=== PATIENT | male | born 1960 | race Caucasian/White ===

== ENCOUNTER → 2017-12-31 | Outpatient (CLI) | payer MEDICAID ==
[2017-12-31 08:14] LABS: Basophils % (A) 1 %; Eosinophils # (A) 0.2 k/uL (0-0.7); Eosinophils % (A) 2 %; HCT 48.7 % (39.0-53.0); Lymphocytes # (A) 2.1 k/uL (1.0-4.8); Lymphocytes % (A) 30 %; MCH 29.6 pg (25.0-35.0); MCHC 32.9 g/dL (31.0-37.0); MCV 89.9 fL (80.0-100.0); Mean Platelet Volume 7.1; Monocytes # (A) 0.4 k/uL (0-1.0); Monocytes % (A) 5 %; Neutrophils # (A) 4.2 k/uL (1.3-7.7); Neutrophils % (A) 60 %; Platelet Count 208 k/uL (150-450); RBC 5.42 m/uL (4.30-5.90); RDW 12.9 % (11.5-15.5)
[2017-12-31 09:42] LABS: Albumin 4.2 g/dL (3.5-5.0); Calcium 9.9 mg/dL (8.4-10.2); Potassium 4.6 mmol/L (3.5-5.1); Total Protein 7.2 g/dL (6.3-8.2)
[2017-12-31 10:12] LABS: Prostate Specific Antigen 1.46 ng/mL (0.00-4.00)
== END | disposition home or self-care (01) ==
LOC: LABWHC1 07:40
PROVIDERS: ATTEND Family Medicine
DX: Z00.00 Encounter for general adult medical examination without abnormal findings (principal); M54.31 Sciatica, right side; I10 Essential (primary) hypertension
CPT/HCPCS: 36415; 80053; 80061; 84153; 84443; 85025; 86803

== ENCOUNTER 2019-01-12 09:02 | Day surgery (SDC) | payer MEDICAID ==
[2019-01-08 08:56] VITALS: BMI 28.8
[~2019-01-12 09:02] MED LIST: LACTATED RINGERS 1,000 ML IV SCH
[2019-01-12 09:52] VITALS: TEMP 97
[2019-01-12] MEDS ORDERED: LIDOCAINE 1% INJ 10MG/ML (20 ML MDV) ONE (10:16)
[2019-01-12] MEDS ORDERED: PROPOFOL 10 MG/ML 20 ML VIAL IV ONE ×2 (10:16)
--- NOTE | 2019-01-12 10:49 | P.PCN ---
Date of Procedure: 01/12/19 Procedure(s) Performed: Procedure: Total colonoscopy. Preoperative diagnosis: Screening for neoplasia, patient has family history of colon cancer in his mother. Postoperative diagnosis: Sigmoid diverticulosis with no evidence of acute diverticulitis, strictures, polyps or cancer. Preparation: HalfLytely prep. Sedation: Was provided by anesthesia. Brief clinical history: The patient is a 58-year-old male who is scheduled for this evaluation for screening for neoplasia because of family history of colon cancer in his mother. His last exam was in September 2013. The patient has no abdominal complaints, bleeding or anemia. Procedure: With the patient on his left lateral decubitus position and after informed consent and adequate sedation, the perianal area was inspected and it did not show any fissures or fistulas. There were no masses felt on digital rectal examination. The Olympus CFH 190L video colonoscope was then inserted in the rectum in the usual fashion and advanced to the cecum. There were several diverticular orifices seen scattered in the sigmoid with no evidence of acute diverticulitis or strictures. No polyps or tumors were seen. I retroflexed the endoscope in the rectum before the endoscope was withdrawn. The patient tolerated the procedure well. Plan: The patient was reassured. Discussed dietary measures. He will follow up with you as planned and I recommended repeat exam in 5 years.
[2019-01-12 10:50] VITALS: RESP 14
[2019-01-12 11:01] VITALS: BP 121/71; PULSE 67
== END 2019-01-12 11:38 | disposition home or self-care (01) ==
LOC: ORWHC2ENDO 09:02
DX: Z12.11 Encounter for screening for malignant neoplasm of colon (principal); Z80.0 Family history of malignant neoplasm of digestive organs; K57.30 Diverticulosis of large intestine without perforation or abscess without bleeding; I10 Essential (primary) hypertension; K21.9 Gastro-esophageal reflux disease without esophagitis; Z79.82 Long term (current) use of aspirin; Z79.899 Other long term (current) drug therapy
CPT/HCPCS: J2001; J2704; G0105

== ENCOUNTER → 2019-08-13 | Outpatient (CLI) | payer MEDICAID | LOC: LABWHC1 12:20 | PROVIDERS: ATTEND Family Medicine | DX: M62.838 Other muscle spasm (principal) | CPT/HCPCS: 36415; 82550 ==

== ENCOUNTER → 2019-10-30 | Outpatient (CLI) | payer MEDICAID ==
[2019-10-30 09:16] LABS: Basophils % (A) 1 %; Eosinophils # (A) 0.1 k/uL (0-0.7); Eosinophils % (A) 2 %; HCT 49.9 % (39.0-53.0); HGB 16.2 gm/dL (13.0-17.5); Lymphocytes # (A) 1.6 k/uL (1.0-4.8); Lymphocytes % (A) 20 %; MCH 30.4 pg (25.0-35.0); MCHC 32.4 g/dL (31.0-37.0); MCV 93.7 fL (80.0-100.0); Mean Platelet Volume 8.1; Monocytes # (A) 0.4 k/uL (0-1.0); Monocytes % (A) 5 %; Neutrophils # (A) 5.8 k/uL (1.3-7.7); Neutrophils % (A) 71 %; Platelet Count 194 k/uL (150-450); RBC 5.33 m/uL (4.30-5.90); RDW 12.6 % (11.5-15.5); WBC 8.1 k/uL (3.8-10.6)
[2019-10-30 17:27] LABS: African American GFR (CKD) 76.3 (60.0-200.0); Anion Gap 7.8 mmol/L (4.00-12.00); BUN/Creat Ratio 14.17 Ratio (12.00-20.00); Calcium 9.8 mg/dL (8.7-10.3); Carbon Dioxide 29.2 mmol/L (21.6-31.8); Chol/HDL Ratio 3.2; LDL Cholesterol,Calculated 100.4 mg/dL (0.0-131.0); Non-African American GFR(CKD) 65.8 (60.0-200.0); Potassium 4.9 mmol/L (3.5-5.5); VLDL Calculation 22.6 mg/dL (5.00-40.00)
== END | disposition home or self-care (01) ==
LOC: LABWHC1 08:23
PROVIDERS: ATTEND Family Medicine
DX: I10 Essential (primary) hypertension (principal); M54.5 Low back pain; F41.1 Generalized anxiety disorder
CPT/HCPCS: 36415; 80048; 80061; 82550; 84153; 84450; 84460; 85025

== ENCOUNTER → 2019-11-06 | Outpatient (CLI) | payer MEDICAID ==
[2019-11-06 12:59] LABS: Ionized Calcium 5.1 mg/dL (4.5-5.3)
[2019-11-06 19:34] LABS: African American GFR (CKD) 76.3 (60.0-200.0); BUN/Creat Ratio 13.33 Ratio (12.00-20.00); C Reactive Protein <0.4 mg/dL (0.0-0.8); Calcium 9.6 mg/dL (8.7-10.3); Carbon Dioxide 25.7 mmol/L (21.6-31.8); Chloride 102 mmol/L (96-109); Creatine Kinase 93 U/L (35-257); Glucose 172 mg/dL (70-110); Magnesium 2.4 mg/dL (1.5-2.4); Non-African American GFR(CKD) 65.8 (60.0-200.0); Sodium 137 mmol/L (135-145)
[2019-11-06 19:50] LABS: Anti-DNA, DS unit <1.0 IU/mL; DNA Double-Stranded NEGATIVE (NEGATIVE)
== END | disposition home or self-care (01) ==
LOC: LABWHC1 11:35
PROVIDERS: ATTEND Psychiatry & Neurology Neurology
DX: M60.9 Myositis, unspecified (principal); R25.2 Cramp and spasm; R25.3 Fasciculation
CPT/HCPCS: 36415; 80048; 82330; 82550; 82607; 82747; 83735; 84439; 84443; 85652; 86038; 86140; 86225

== ENCOUNTER → 2021-02-03 | Outpatient (CLI) | payer MEDICAID | END | disposition home or self-care (01) | LOC: LABPAT 08:12 | PROVIDERS: ATTEND Student in an Organized Health Care Education/Training Program | DX: Z20.822 Contact with and (suspected) exposure to COVID-19 (principal) | CPT/HCPCS: U0003; C9803; U0005 ==

== ENCOUNTER 2021-02-10 08:05 | Day surgery (SDC) | payer MEDICAID ==
[2021-02-08 10:28] VITALS: BMI 27.8
[~2021-02-10 08:05] MED LIST changes: -LACTATED RINGERS 1,000 ML IV SCH; +LIDOCAINE 1% (10MG/ML) FOR IV START INTRADERMA PRN
[2021-02-10] MEDS: LACTATED RINGERS 1,000 ML IV SCH ×2 (08:18→08:36)
[2021-02-10 08:38] VITALS: RESP 16; TEMP 97.2
[2021-02-10 08:39] LABS: Glucose,Whole Blood 105 mg/dL (75-99)
[2021-02-10] MEDS ORDERED: PROPOFOL 10 MG/ML 20 ML VIAL IV ONE (08:45)
--- NOTE | 2021-02-10 09:02 | P.OP ---
Date of Procedure: 02/10/21 Preoperative Diagnosis: Screening colonoscopy Postoperative Diagnosis: Diverticulosis Anesthesia: GETA Surgeon: Wili Smith Estimated Blood Loss (ml): 0 Condition: stable Disposition: same day Description of Procedure: Patient brought operative suite remained in the left lateral decubitus position underwent sedation per department of anesthesia timeout performed correct patient correct procedure correct site was verified rectal exam was performed no gross abnormalities noted scope was placed from the rectum to the cecum with the slowly withdrawn being sure to visualize all shrestha of the colon on the way out no gross abnormalities are noted other than sigmoid diverticuli. Scope was retroflexed in the rectum no gross abnormalities are noted scope was removed patient tolerated procedure well no apparent complications repeat colonoscopy in 10 years
[2021-02-10 09:16] VITALS: BP 113/74; PULSE 72
== END 2021-02-10 10:10 | disposition home or self-care (01) ==
LOC: ORWHC2ENDO 08:05
PROVIDERS: ATTEND Student in an Organized Health Care Education/Training Program
DX: Z12.11 Encounter for screening for malignant neoplasm of colon (principal); K57.30 Diverticulosis of large intestine without perforation or abscess without bleeding; I10 Essential (primary) hypertension; E11.9 Type 2 diabetes mellitus without complications; M19.90 Unspecified osteoarthritis, unspecified site; F32.9 Major depressive disorder, single episode, unspecified; F41.9 Anxiety disorder, unspecified; Z79.82 Long term (current) use of aspirin; Z79.899 Other long term (current) drug therapy; Z85.038 Personal history of other malignant neoplasm of large intestine; Z82.49 Family history of ischemic heart disease and other diseases of the circulatory system; Z84.89 Family history of other specified conditions
CPT/HCPCS: J2704; G0121

== ENCOUNTER → 2021-03-09 | Outpatient (CLI) | payer MEDICAID ==
--- NOTE | 2021-03-09 11:08 | MR ---
EXAMINATION TYPE: MR lumbar spine wo con DATE OF EXAM: 03/09/2021 COMPARISON: NONE HISTORY: Low back pain that travels down right leg for years. TECHNIQUE: T1 and T2 axial and sagittal images of the lumbar spine are submitted. FINDINGS: There is no abnormal signal seen within the visualized spinal cord or paraspinal soft tissu es. At T12-L1 there is some broad-based disc bulging but no canal stenosis or focal herniation. No forami nal encroachment. Degenerative disc disease. At L1-2 there is degenerative disc disease with disc bulging but no canal stenosis or focal herniatio n. Neural foramina patent. At L2-3 there is moderate degenerative disc disease with broad-based disc protrusion, facet arthropat hy and ligamentum flavum hypertrophy result in moderate to severe canal stenosis and bilateral forami nal encroachment. At L3-4 there is moderate degenerative disc disease. There is focal moderate sized central disc herni ation with significant effacement of thecal sac, canal stenosis. There is facet arthropathy and ligam entum flavum hypertrophy and moderate bilateral foraminal encroachment. At L4-5 there is severe degenerative disc disease with discogenic marrow changes and broad-based cent ral disc herniation, facet arthropathy and ligamentum flavum hypertrophy. Severe canal stenosis and b ilateral foraminal encroachment. At L5-S1 there is degenerative disc disease and facet arthropathy with no evidence of focal herniatio n. Neural foramina patent. No Canal stenosis. IMPRESSION: 1. Multilevel degenerative disc disease and facet arthropathy with multilevel hypertrophic changes of the ligamentum flavum resulting in multilevel canal stenosis as discussed above most marked at L4-5. 2. Multilevel disc herniations as discussed above.
== END | disposition home or self-care (01) ==
LOC: RADMRIMAIN 09:37
PROVIDERS: ATTEND Orthopaedic Surgery Orthopaedic Surgery of the Spine
DX: M51.16 Intervertebral disc disorders with radiculopathy, lumbar region (principal); M47.26 Other spondylosis with radiculopathy, lumbar region; M48.061 Spinal stenosis, lumbar region without neurogenic claudication; M99.73 Connective tissue and disc stenosis of intervertebral foramina of lumbar region
CPT/HCPCS: 72148

== ENCOUNTER 2021-06-12 07:59 | Emergency (ER) | payer MEDICAID ==
[2021-06-12 08:06] VITALS: TEMP 97.6
[2021-06-12] MEDS ORDERED: KETOROLAC 15 MG/ML 1 ML VIAL IVP STA (08:30)
[2021-06-12] MEDS ORDERED: HYDROmorphone 0.5 MG/0.5 ML SYRINGE IVP STA (08:31)
[2021-06-12] MEDS ORDERED: DEXAMETHASONE SOD PHOSPHATE 10 MG/ML 1 ML VIAL IV STA (08:31)
[2021-06-12] MEDS ORDERED: ONDANSETRON 4 MG/2 ML VIAL IVP STA (08:31)
--- NOTE | 2021-06-12 09:39 | ED ---
Extremity Problem HPI - General Chief complaint: Extremity Problem,Nontraumatic Stated complaint: sciatic pain Time Seen by Provider: 06/12/21 08:10 Source: patient, RN notes reviewed Mode of arrival: wheelchair Limitations: physical limitation - History of Present Illness Initial comments: 60-year-old male presents emergency apartment with chief complaint of left hip pain, back pain. Patient's been having issues with his right hip and which he is scheduled for cortisone injection. Patient states he sees Dr. Lucero. Patient has had an MRI. 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 Patient states that around secondary to the pain. He denies any bowel, bladder incontinence or retention or saddle last seizures. - Related Data Home Medications Medication Instructions Recorded Confirmed Bisoprol/Hydrochlorothiazide [Ziac 1 tab PO DAILY 11/29/14 06/12/21 5-6.25 MG] Omeprazole [PriLOSEC] 20 mg PO DAILY 11/29/14 06/12/21 Aspirin [Adult Low Dose Aspirin EC] 81 mg PO DAILY 01/08/19 06/12/21 lisinopriL [Zestril] 5 mg PO HS 11/26/19 06/12/21 buPROPion HCL [Wellbutrin SR] 150 mg PO BID 02/08/21 06/12/21 Previous Rx's Medication Instructions Recorded HYDROcodone/APAP 7.5-325MG [[place] 1 tab PO Q6HR PRN 3 Days #12 tab 06/12/21 7.5-325] predniSONE 50 mg PO DAILY #5 tab 06/12/21 Allergies Allergy/AdvReac Type Severity Reaction Status Date / Time No Known Allergies Allergy Verified 06/12/21 08:41 Review of Systems ROS Statement: Those systems with pertinent positive or pertinent negative responses have been documented in the HPI. ROS Other: All systems not noted in ROS Statement are negative. Past Medical History Past Medical History: Diabetes Mellitus, GERD/Reflux, Hypertension History of Any Multi-Drug Resistant Organisms: None Reported Past Surgical History: Orthopedic Surgery Additional Past Surgical History / Comment(s): eye surgery, shoulder surgery, colonoscopy Past Anesthesia/Blood Transfusion Reactions: No Reported Reaction Past Psychological History: Anxiety, Depression Smoking Status: Never smoker Past Alcohol Use History: Occasional Past Drug Use History: None Reported - Past Family History Mother Family Medical History: Cancer Additional Family Medical History / Comment(s): colon General Exam Limitations: physical limitation General appearance: alert, in no apparent distress Head exam: Present: atraumatic, normocephalic, normal inspection Neck exam: Present: normal inspection, full ROM. Absent: tenderness, meningismus, lymphadenopathy Respiratory exam: Present: normal lung sounds bilaterally. Absent: respiratory distress, wheezes, rales, rhonchi, stridor Cardiovascular Exam: Present: regular rate, normal rhythm, normal heart sounds. Absent: systolic murmur, diastolic murmur, rubs, gallop, clicks GI/Abdominal exam: Present: soft, normal bowel sounds. Absent: distended, tenderness, guarding, rebound, rigid Back exam: Present: tenderness, paraspinal tenderness, other (Lower extremity strength equal bilaterally neurovascular intact). Absent: full ROM, vertebral tenderness Neurological exam: Present: alert, oriented X3, CN II-XII intact, reflexes normal. Absent: motor sensory deficit Course Vital Signs 06/12/21 08:00 Temperature 97.6 F Pulse Rate 64 Respiratory 18 Rate Blood Pressure 167/97 O2 Sat by Pulse 99 Oximetry Medical Decision Making - Medical Decision Making I did review patient's pelvis x-ray along with lumbar MRI. Patient has severe degenerative changes disc herniations and bulging. Patient has some lumbar region There was no red flag symptoms. Patient's pain is improved at this time he will follow-up with his orthopedic surgeon return for any worsening changes symptoms. Disposition Clinical Impression: Lumbar radiculopathy, acute, Lumbar degenerative disc disease, Hip pain Disposition: HOME SELF-CARE Condition: Stable Instructions (If sedation given, give patient instructions): Lumbar Radiculopathy (ED) Additional Instructions: Please return to the Emergency Department if symptoms worsen or any other concerns. Prescriptions: HYDROcodone/APAP 7.5-325MG [[place] 7.5-325] 1 tab PO Q6HR PRN 3 Days #12 tab PRN Reason: pain predniSONE 50 mg PO DAILY #5 tab Is patient prescribed a controlled substance at d/c from ED?: Yes When asked, does pt state using other controlled substances?: No If prescribed controlled substance>3 days was MAPS reviewed?: Prescribed <3 Days If opioid is for acute pain is fill amount 7 days or less?: Yes If Rx opioid, was Start Talking consent form obtained?: Yes Referrals: Ryne Calvert Jr, DO [Primary Care Provider] - 1-2 days Eugene Lucero DO [Doctor of Osteopathic Medicine] - 1-2 days Time of Disposition: 09:39
[2021-06-12 09:45] VITALS: BP 143/92; PULSE 88; RESP 16
== END 2021-06-12 09:40 | disposition home or self-care (01) ==
LOC: EC 07:59
DX: M51.16 Intervertebral disc disorders with radiculopathy, lumbar region (principal); M25.552 Pain in left hip; E11.9 Type 2 diabetes mellitus without complications; K21.9 Gastro-esophageal reflux disease without esophagitis; I10 Essential (primary) hypertension; F41.9 Anxiety disorder, unspecified; F32.9 Major depressive disorder, single episode, unspecified; Z79.82 Long term (current) use of aspirin
CPT/HCPCS: 99283; 96374; 96375 ×3; J1100; J2405; J1885; J1170

== ENCOUNTER 2021-06-20 09:00 | Day surgery (SDC) | payer MEDICAID ==
[~2021-06-20 09:00] MED LIST changes: +LACTATED RINGERS 1,000 ML IV SCH; -LIDOCAINE 1% (10MG/ML) FOR IV START INTRADERMA PRN
[2021-06-20 09:25] VITALS: TEMP 97
[2021-06-20] MEDS ORDERED: TRIAMCINOLONE ACETONIDE 40 MG/ML 1 ML VIAL ONE (09:58)
[2021-06-20] MEDS ORDERED: ROPIVACAINE 5MG/ML 20ML VIAL ONE (09:58)
[2021-06-20 09:59] LABS: Glucose,Whole Blood 122 mg/dL (75-99)
--- NOTE | 2021-06-20 10:14 | P.PCN ---
Date of Procedure: 06/20/21 Surgeon: Maryam Olvera Pathology: none sent Condition: stable Disposition: PACU Description of Procedure: Pre OP diagnoses= Rt greater trochanteric bursitis . Postoperative diagnosis= Rt greater trochanteric bursitis. Operation=Rt trochanteric bursa steroid injection under fluoroscopy guidance. Anesthesia= local only with lidocaine 1%. Complications= none . Risks and benefits of the procedure including but not limited to risk of infection and bleeding and not complete pain relief and ALLERGIC reaction to medication discussed with the patient and the alternative also discussed with the patient and she agreed with proceding .Patient was taken to the operating room placed in supine position , standard monitors applied , the hip area was prepped with chlorhexidine , and under sterile technique using 25-gauge needle for skin and subcutaneous tissue infiltration and 22-gauge Quincke-type spinal needle advanced slowly under fluoroscopy to contact bone of the greater trochanter. Needle placement was confirmed with AP and lateral view . 5ML of ropivacaine 0.5% mixed with 40 mg of Kenalog injected after negative aspiration . there was no paresthesia during the injection ,needle removed and a dressing applied.Patient tolerated the procedure well without any complication and she will follow up with the pain clinic in a few weeks P Patient discharged home in stable condition
[2021-06-20 10:19] VITALS: RESP 16
--- NOTE | 2021-06-20 10:21 | FL ---
EXAMINATION TYPE: FL guided pain mgmt statistic DATE OF EXAM: 06/20/2021 HISTORY: Fluoroscopy time 9 seconds of fluoroscopy provided. IMPRESSION: 1. Fluoroscopy time.
[2021-06-20 10:31] VITALS: BP 152/92; PULSE 61
== END 2021-06-20 10:36 | disposition home or self-care (01) ==
LOC: ORPAIN 09:00
PROVIDERS: ATTEND Anesthesiology
DX: M70.61 Trochanteric bursitis, right hip (principal)
CPT/HCPCS: 20610; J3301; J2795

== ENCOUNTER 2021-07-25 07:53 | Day surgery (SDC) | payer MEDICAID ==
[2021-07-21 14:44] VITALS: BMI 27.0
[2021-07-25 08:16] VITALS: TEMP 97
[2021-07-25 08:21] LABS: Glucose,Whole Blood 128 mg/dL (75-99)
[2021-07-25] MEDS ORDERED: methylPREDNISolone ACETATE 40 MG/ML 1 ML VIAL ONE (08:22)
[2021-07-25] MEDS ORDERED: IOPAMIDOL M200 10 ML VIAL ONE (08:22)
--- NOTE | 2021-07-25 08:49 | P.PCN ---
Date of Procedure: 07/25/21 Procedure(s) Performed: PREOPERATIVE DIAGNOSIS: 1- Lumbar Degenerative Disc Diseases 2-Lumbar spondylosis with Facet arthropathy without myelopathy. 3-lumbar herniated disc disease POSTOPERATIVE DIAGNOSIS: Same as preop diagnosis. PROCEDURE 1. Lumbar epidural steroid injection under fluoroscopic guidance at the L3-4 level. (Fluoroscopy imaging was available in radiology department) 2. Lumbar epidurogram. ANESTHESIA: Local with 1% lidocaine 5 ml only EBL: Minimal PROCEDURE INDICATION: The patient with low back pain and radiculitis symptoms unresponsive to conservative treatment. Fluoroscopy was used to optimize visualization of the needle placement and to maximize safety. PROCEDURE DESCRIPTION / TECHNIQUE: The patient was seen and identified in the preoperative area. Risks, benefits, complications including but not limited to infections ,bleeding ,allergic reaction to the medications ,nerve damage and not complete pain releife , and alternatives were discussed with the patient. The patient agreed to proceed with the procedure and signed the consent. IV was started, and vital signs were stable. Patient was taken to the OR and time out was completed. The patient was placed in the prone position on procedure table and a pillow was placed under the abdomen to reduce lumbar lordosis. The lumbosacral area was prepped and draped in the usual sterile fashion.ere closely monitored during the procedure. Vital signs was monitered during the entire procedure. Using anterior-posterior fluoroscopy, the L3-4 interlaminar space was identified and the skin over this site was marked and then infiltrated with 1% lidocaine subcutaneously. Subsequently, a 18 -gauge Tuohy epidural needle was inserted and advanced toward the epidural space using the ``Loss of resistance technique and guided by AP and lateral fluoroscopy. The correct needle position in the epidural space was verified with the injection of 2 mL of the water soluble contrast dye Isovue 200 contrast and observing an excellent epidurogram with the epidural spread of the dye, after negative aspiration for blood and CSF and in the absence of paresthesias. Again after negative aspiration, a 6 ml mixture containing 60 mg of Depo-medrol , and 2 ml of preservative free Normal Saline, and 2 ml of preservative free lidocaine 1% solution was injected and a washout of epidurogram was seen. Needle was withdrawn intact, skin was cleansed, and bandages were applied. COMPLICATIONS: None DISPOSITION / PLANS: The patient was placed in a supine position and transferred to the recovery area in a stable condition for observation. There was no evidence of lower extremity motor or sensory deficit after the procedure. Patient was discharged from the recovery room after meeting discharge criteria. Home discharge instructions were given to the patient by the staff. The patient was reexamined prior to discharge. The patient will schedule a follow up in the clinic in 2-4 weeks.
[2021-07-25 08:53] VITALS: BP 128/89; PULSE 58; RESP 16
--- NOTE | 2021-07-25 10:31 | FL ---
EXAMINATION TYPE: FL guided pain mgmt statistic DATE OF EXAM: 07/25/2021 FLUOROSCOPY Fluoroscopy time of 8 seconds was used during lumbar epidural injection. 1 image/s document/s the pr sathish.
== END 2021-07-25 09:26 | disposition home or self-care (01) ==
LOC: ORPAIN 07:53
PROVIDERS: ATTEND Specialist
DX: M47.26 Other spondylosis with radiculopathy, lumbar region (principal); M51.16 Intervertebral disc disorders with radiculopathy, lumbar region; E11.9 Type 2 diabetes mellitus without complications; Z79.82 Long term (current) use of aspirin
CPT/HCPCS: 62323; J1030; Q9966

== ENCOUNTER 2021-08-29 06:31 | Day surgery (SDC) | payer MEDICAID ==
[2021-08-28 09:23] VITALS: BMI 27.3
[2021-08-29 07:03] VITALS: RESP 16; TEMP 96.4
[2021-08-29 07:12] LABS: Glucose,Whole Blood 121 mg/dL (75-99)
[2021-08-29] MEDS ORDERED: IOPAMIDOL M200 10 ML VIAL ONE (07:45)
[2021-08-29] MEDS ORDERED: LACTATED RINGERS 1,000 ML IV SCH (07:45)
[2021-08-29] MEDS ORDERED: methylPREDNISolone ACETATE 40 MG/ML 1 ML VIAL ONE (07:45)
--- NOTE | 2021-08-29 08:11 | P.PCN ---
Date of Procedure: 08/29/21 Description of Procedure: 1. L3-L4 Epidural steroid injection under fluoroscopic guidance #2/3 , 2. Lumbar epidurogram PREOPERATIVE DIAGNOSIS: Lumbar degenerative disc disease, and Lumbar radiculopathy. POSTOPERATIVE DIAGNOSIS: Lumbar degenerative disc disease, and Lumbar radiculopathy. SURGEON: Giovana Kumar ANESTHESIA: Local with 1% lidocaine, and IV sedation : none EBL: None. Specimen removed: None Fluoroscopic image: saved to electronic medical records PROCEDURE INDICATION: The patient had history of Lumbar degenerative disc disease and Lumbar radiculopathy. Patient had more than 70% pain relief with the first epidural steroid injection for a week. Later on case pain levels gradually return back to his baseline normal levels. Failed to conservative therapy. Presented for repeat epidural steroid injection. PROCEDURE DESCRIPTION: The patient was seen and identified in the preoperative area. Risks, benefits, complications, and alternatives were discussed with the patient. The patient agreed to proceed with the procedure and signed the consent. IV was started, and vital signs were stable. Patient was taken to the procedure area, and time out was completed. The patient was placed in the prone position on procedure table and a pillow was placed under the abdomen to reduce lumbar lordosis. The lumbosacral area was prepped and draped in the usual sterile fashion. Critical pause was taken. Vital signs were closely monitored during the procedure. Using anterior-posterior fluoroscopy, the L3-L4 interlaminar space was identified, and skin and deeper tissues were localized with 1% lidocaine. Using anterior-posterior fluoroscopy, lateral fluoroscopy, and [id number] technique, a 20 gauge 3.5 Tuohy epidural needle entered the epidural space. After negative aspiration of CSF and blood with no paresthesias, 2 ml of [id number] contrast dye was injected and an excellent epidurogram was seen. Again after negative aspiration of CSF and blood with no paresthesias, 10 mL of block solution was injected into the epidural space. Block solution contained 80 mg of Depo-Medrol, and 8 mL of preservative-free normal saline. Needle was withdrawn intact, skin was cleansed, and bandages were applied. COMPLICATIONS: None. DISPOSITION / PLANS: The patient was placed in a supine position and transferred to the recovery area in a stable condition for observation. Patient was discharged from the recovery room after meeting discharge criteria. Home dischar ge instructions given to the patient by the staff. The patient was reexamined prior to discharge. The patient will schedule a follow up in the clinic in 4 weeks. Note: If patient doesn't have good pain relief with present epidural plan to consider reevaluate before proceeding for intervention procedures.
--- NOTE | 2021-08-29 08:19 | FL ---
Fluoroscopy INDICATION: Pain FINDINGS: Fluoroscopy time: 10 seconds. Images obtained: 2. IMPRESSIONS: 1. Documentation of fluoroscopy.
[2021-08-29 08:27] VITALS: BP 152/89; PULSE 64
== END 2021-08-29 08:38 | disposition home or self-care (01) ==
LOC: ORPAIN 06:31
DX: M51.16 Intervertebral disc disorders with radiculopathy, lumbar region (principal); E11.9 Type 2 diabetes mellitus without complications; I10 Essential (primary) hypertension; K21.9 Gastro-esophageal reflux disease without esophagitis; Z79.899 Other long term (current) drug therapy
CPT/HCPCS: 62323; J1030; Q9966

== ENCOUNTER → 2021-09-25 | Outpatient (CLI) | payer MEDICAID ==
[2021-09-25 10:44] VITALS: BP 161/95; PULSE 94; RESP 18; TEMP 97.2
--- NOTE | 2021-09-25 11:13 | P.PN ---
Subjective Progress Note Date: 09/25/21 This is a follow-up visit for this 60 years old male with a chronic history of severe low back pain with radiation to the lower extremity, they) with lumbar spondylosis with lumbar facet arthropathy and lumbar degenerative disc disease and lumbar radiculopathy, history we have done lumbar epidural steroid injections 2 at L3 4, and reported that he had minimal benefit from it and he continued to have severe low back pain with radiation to the buttock and towards the hip area bilaterally, he denies any motor or sensory deficits he denies any fever or night sweats under is no change in the bowel movement or urination, reported that the pain is constant and increases with any activity interfere with the quality of life Objective - Vital Signs Vital signs: Vital Signs Temp 97.2 F L 09/25/21 10:37 Pulse 94 09/25/21 10:37 Resp 18 09/25/21 10:37 BP 161/95 09/25/21 10:37 Pulse Ox 96 09/25/21 10:37 Intake & Output 09/24/21 09/25/21 09/25/21 18:59 06:59 18:59 Weight 81.647 kg - Exam Physical Examinations : -Constitutiona : Cooperative , not in acute distress . -HEENT : nech : supple , no Lymphadenopathy , normal thyroid size . : eyes : no ptosis , no icterus, no photophobia . - neurologic : Cranial nerve II to XII intact , no focal neurological deffecit . -psychatric : alert , oriented X 3 , appropriate affect , intact judgment and insight . -Lymphatic : no Lymphadenopathy . - musculoskeltal : Lumber spine moter stegnth lower extremities ,thigh and legs 5/5 Right side , 5/5 Left side deep tendon reflexes : normal Knee Jerk , normal ankle Jerk lumber facet Loading Test =positive Right , positive Left Range of motion of the lumbar spine Flexion 30 degrees, extension 10 degrees strait leg raising test = negative bilaterally Fabere test= positive Right , and positive LT . hip Joints for range of motion bilaterally Assessment and Plan Plan: Assessment and plan=1-Lumbar radiculopathy. 2-Lumbar degenerative disc disease. 3-Lumbar spondylosis with lumbar facet arthropathy. Patient could benefit from lumbar epidural steroid injection at L5-S1 with fluoroscopy guidance Time with Patient: Less than 30
== END ==
LOC: PNWHC3 10:26
PROVIDERS: ATTEND Specialist
DX: M47.26 Other spondylosis with radiculopathy, lumbar region (principal); M51.16 Intervertebral disc disorders with radiculopathy, lumbar region
CPT/HCPCS: 99211

== ENCOUNTER 2021-10-12 06:15 | Day surgery (SDC) | payer MEDICAID ==
[2021-10-11 10:50] VITALS: BMI 27.5
[2021-10-12 06:26] VITALS: TEMP 96.9
[2021-10-12] MEDS ORDERED: IOPAMIDOL M200 10 ML VIAL ONE (07:05)
[2021-10-12] MEDS ORDERED: TRIAMCINOLONE ACETONIDE 40 MG/ML 1 ML VIAL ONE (07:05)
--- NOTE | 2021-10-12 07:17 | P.PCN ---
Date of Procedure: 10/12/21 Procedure(s) Performed: PREOPERATIVE DIAGNOSIS: 1- Lumbar Degenerative Disc Diseases 2-Lumbar spondylosis with Facet arthropathy without myelopathy. 3-lumbar herniated disc disease POSTOPERATIVE DIAGNOSIS: Same as preop diagnosis. PROCEDURE 1. Lumbar epidural steroid injection under fluoroscopic guidance at the L5S1 level. (Fluoroscopy imaging was available in radiology department) 2. Lumbar epidurogram. ANESTHESIA: Local with 1% lidocaine 3 ml only EBL: Minimal PROCEDURE INDICATION: The patient with low back pain and radiculitis symptoms unresponsive to conservative treatment. Fluoroscopy was used to optimize visualization of the needle placement and to maximize safety. PROCEDURE DESCRIPTION / TECHNIQUE: The patient was seen and identified in the preoperative area. Risks, benefits, complications including but not limited to infections ,bleeding ,allergic reaction to the medications ,nerve damage and not complete pain releife , and alternatives were discussed with the patient. The patient agreed to proceed with the procedure and signed the consent. vital signs were stable. Patient was taken to the OR and time out was completed. The patient was placed in the prone position on procedure table and a pillow was placed under the abdomen to reduce lumbar lordosis. The lumbosacral area was prepped and draped in the usual sterile fashion.ere closely monitored during the procedure. Vital signs was monitered during the entire procedure. Using anterior-posterior fluoroscopy, the L5-S1 interlaminar space was identified and the skin over this site was marked and then infiltrated with 1% lidocaine subcutaneously. Subsequently, 20 -gauge Tuohy epidural needle was inserted and advanced toward the epidural space using the ``Loss of resistance technique and guided by AP and lateral fluoroscopy. The correct needle position in the epidural space was verified with the injection of 2 mL of the water soluble contrast dye Isovue 200 contrast and observing an excellent epidurogram with the epidural spread of the dye, after negative aspiration for blood and CSF and in the absence of paresthesias. Again after negative aspiration, a 6 ml mixture containing 60 mg of Kenalog , and 2 ml of preservative free Normal Saline, and 2 ml of preservative free lidocaine 1% solution was injected and a washout of epidurogram was seen. Needle was withdrawn intact, skin was cleansed, and bandages were applied. COMPLICATIONS: None DISPOSITION / PLANS: The patient was placed in a supine position and transferred to the recovery area in a stable condition for observation. There was no evidence of lower extremity motor or sensory deficit after the procedure. Patient was discharged from the recovery room after meeting discharge criteria. Home discharge instructions were given to the patient by the staff. The patient was reexamined prior to discharge. The patient will schedule a follow up in the clinic in 2-4 weeks.
[2021-10-12 07:56] VITALS: BP 144/74; PULSE 66; RESP 14
[2021-10-12] MEDS ORDERED: LACTATED RINGERS 1,000 ML IV SCH (10:13)
--- NOTE | 2021-10-12 10:16 | FL ---
EXAMINATION TYPE: FL guided pain mgmt statistic DATE OF EXAM: 10/12/2021 FLUOROSCOPY Fluoroscopy time of 2 seconds was used during pain intervention procedure. No image/s document/s the procedure.
== END 2021-10-12 07:56 | disposition home or self-care (01) ==
LOC: ORPAIN 06:15
PROVIDERS: ATTEND Specialist
DX: M51.16 Intervertebral disc disorders with radiculopathy, lumbar region (principal); M47.26 Other spondylosis with radiculopathy, lumbar region
CPT/HCPCS: 62323; J3301; Q9966

== ENCOUNTER → 2021-12-02 | Outpatient (CLI) | payer MEDICAID ==
--- NOTE | 2021-12-03 08:58 | MR ---
EXAMINATION TYPE: MR lumbar spine wo con DATE OF EXAM: 12/02/2021 COMPARISON: MRI lumbar spine March 09, 2021. HISTORY: LBP, BLE radiculopathy, difficulty walking. TECHNIQUE: Multiplanar, multisequence imaging of the lumbar spine is performed without IV contrast. FINDINGS: Sagittal images of the lumbar spine show vertebral body height is to remain satisfactory. A lignment is straightened with slight grade 1 retrolisthesis L2 on L3 and L3 and L4 redemonstrated. Mu ltilevel disc desiccation redemonstrated. Moderate to severe disc space narrowing with heterogeneous Modic type II endplate changes L4-L5 level redemonstrated. Moderate disc space narrowing L2-L3 level. Mild to moderate multilevel anterior spurring. The conus medullaris is normal in position and signal ending at T12-L1 disc space level. Axial images at the T12-L1 level shows mild broad-based disc bulge minimally effacing the anterior th ecal sac along with mild facet degenerative changes and ligamentum flavum hypertrophy minimally effac ing posterior lateral thecal sac. Bilateral neural foramina are patent. Findings slightly more promin ent versus prior. Axial images at L1-L2 level show mild broad-based disc bulge mildly effacing anterior thecal sac. Pat ent bilateral neural foramina. No significant change from prior. Axial images at L2-L3 level demonstrates spondylolisthesis and moderate to severe broad disc bulge wi th central disc protrusion component effacing the anterior thecal sac. There is mild facet degenerati ve changes bilaterally. There is mild bilateral neural foraminal narrowing. No significant change fro m prior. Axial images at L3-L4 level show moderate broad disc bulge with more prominent central disc protrusio n component effacing anterior thecal sac on axial image 15. There is [id number] facet degenerat sasha changes bilaterally. There is mild right and moderate left-sided neural foraminal narrowing. Find ings articularly disc herniation more prominent from prior. Axial images at the L4-L5 level show posterior spur disc complex and moderate to advanced facet arthr opathy effacing the anterior thecal sac. There is severe right greater than left bilateral neural for aminal narrowing with some effacement of both L4 nerve. Present sagittal image 4 on the left and imag es 12 and 13 on the right. Axial images at the L5-S1 level redemonstrate moderate facet arthropathy bilaterally. Spinal canal is preserved. Patent bilateral neural foramina. Paraspinal muscle bulk is preserved. IMPRESSION: Multilevel degenerative changes worse at L3-L4 and L4-L5 levels as detailed above. Increa sed degenerative findings noted at L3-L4 level from most recent prior 2020 MRI.
== END | disposition home or self-care (01) ==
LOC: RADMRIMAIN 15:03
PROVIDERS: ATTEND Orthopaedic Surgery Orthopaedic Surgery of the Spine
DX: M47.27 Other spondylosis with radiculopathy, lumbosacral region (principal); M43.16 Spondylolisthesis, lumbar region; M51.16 Intervertebral disc disorders with radiculopathy, lumbar region
CPT/HCPCS: 72148

== ENCOUNTER → 2022-05-21 | Outpatient (CLI) | payer MEDICAID ==
[2022-05-21 09:30] LABS: Partial Thromboplastin Time 24.2 sec (22.0-30.0)
[2022-05-21 14:33] LABS: Appearance,Urine Clear (Clear); Bilirubin,Urine Negative (Negative); Blood,Urine Negative (Negative); Color,Urine Yellow (Yellow); Ketones,Urine Negative (Negative); Nitrite,Urine Negative (Negative); Specific Gravity,Urine 1.018 (1.001-1.030); Urobilinogen,Urine 0.2 (0.2,1.0)
[2022-05-21 14:40] LABS: Bacteria,Urine None Seen /HPF (None Seen)
[2022-05-21 15:39] LABS: HGB 13.4 g/dL (13.0-17.0); MCH 28.9 pg (27.0-32.0); MCHC 30.5 g/dL (32.0-37.0); Mean Platelet Volume 11.3 fL (9.5-12.2); NRBC Per 100 WBC 0 /100 WBCS (0.0-0.0); Platelet Count 249 X 10*3/uL (140-440); RBC 4.63 X 10*6/uL (4.40-5.60); RDW 13.3 % (11.5-14.5); WBC 6.68 X 10*3/uL (4.50-10.00)
[2022-05-21 15:48] LABS: African American GFR (CKD) 93.1 (60.0-200.0); Albumin 4.4 g/dL (3.8-4.9); Albumin/Globulin Ratio 1.76 (1.60-3.17); Anion Gap 12.1 mmol/L (10.00-18.00); BUN/Creat Ratio 15.3 Ratio (12.00-20.00); Blood Urea Nitrogen 15.3 mg/dL (9.0-27.0); Calcium 9.6 mg/dL (8.7-10.3); Carbon Dioxide 24.9 mmol/L (20.0-27.5); Globulin 2.5 g/dL (1.6-3.3); Non-African American GFR(CKD) 80.3 (60.0-200.0); Potassium 4.3 mmol/L (3.5-5.5); Total Bilirubin 0.4 mg/dL (0.30-1.20); Total Protein 6.9 g/dL (6.2-8.2)
[2022-05-21 22:30] LABS: INR 0.9 (<1.2); Prothrombin Time 10.2 sec (9.0-12.0)
== END | disposition home or self-care (01) ==
LOC: LABPAT 08:15
PROVIDERS: ATTEND Orthopaedic Surgery
DX: Z01.812 Encounter for preprocedural laboratory examination (principal)
CPT/HCPCS: 80053; 81001; 85027; 85610; 85730; 87070; 93005

== ENCOUNTER 2022-05-29 05:36 | Day surgery (SDC) | payer MEDICAID ==
[~2022-05-29 05:36] MED LIST changes: +ACETAMINOPHEN TAB 500 MG TAB PO PRN; +DEXAMETHASONE SOD PHOSPHATE 4 MG/ML 1 ML VIAL IV ONE; +GABAPENTIN 300 MG CAP PO PRN; +LIDOCAINE 1% (10MG/ML) FOR IV START INTRADERMA PRN; +MELOXICAM 7.5 MG TAB PO PRN; +MIDAZOLAM 2 MG/2 ML VIAL IV PRN; +ONDANSETRON 4 MG/2 ML VIAL IVP ONE; +TRANEXAMIC ACID IN NACL,ISO-OS 1,000 MG in SALINE 1 100ML.BAG IVPB PRN
[2022-05-29 06:21] LABS: Glucose,Whole Blood 122 mg/dL (70-110)
[2022-05-29] MEDS ORDERED: SUCCINYLCHOLINE CHLORIDE 200 MG/10 ML VIAL IV ONE (06:51)
[2022-05-29] MEDS ORDERED: TRANEXAMIC ACID IN NACL,ISO-OS 1,000 MG/100 ML BAG ONE (06:51)
[2022-05-29] MEDS ORDERED: PROPOFOL 10 MG/ML 20 ML VIAL IV ONE (06:51)
[2022-05-29] MEDS ORDERED: MIDAZOLAM 2 MG/2 ML VIAL ONE (06:51)
[2022-05-29] MEDS ORDERED: GLYCOPYRROLATE 0.2 MG/ML 2 ML VIAL ONE (06:51)
[2022-05-29] MEDS ORDERED: NEOSTIGMINE 1 MG/ML 10 ML VIAL ONE (06:51)
[2022-05-29] MEDS ORDERED: ROCURONIUM 10 MG/ML (5 ML VIAL) IV ONE (06:51)
[2022-05-29] MEDS ORDERED: fentaNYL (PF) 50 MCG/ML 2 ML AMP ONE (06:51)
[2022-05-29] MEDS ORDERED: LIDOCAINE 2% INJ 20 MG/ML (2 ML VIAL) ONE (06:51)
[2022-05-29] MEDS ORDERED: ceFAZolin 1,000 MG in SODIUM CHLORIDE 0.9% 1,000 ML IRRIGATION ONE (06:56)
[2022-05-29] MEDS ORDERED: ROPIVACAINE 5 MG/ML 30 ML VIAL MISCELLANE ONE ×2 (07:21→07:56)
--- NOTE | 2022-05-29 08:05 | P.OP ---
Date of Procedure: 05/29/22 Preoperative Diagnosis: Severe osteoarthritis right hip Postoperative Diagnosis: Severe osteoarthritis right hip Procedure(s) Performed: Right total hip arthroplasty with a direct anterior approach Implants: [employer] Polarstem standard size 4 collar [employer] R3, 3 hole hemispherical acetabular shell, 52 mm [employer] Reflection 6.5 mm cancellus screw, 20 mm 2 [employer] R3, XLPE 20 acetabular liner [employer]hew Oxinium femoral head 36 m, +4 All components were press-fit. The articulation is Oxinium on polyethylene. Anesthesia: GETA Surgeon: Patricio Mendoza Manager Business Systems #1: Triston Peres Estimated Blood Loss (ml): 250 Pathology: other (Femoral head) Condition: stable Disposition: PACU Indications for Procedure: After failure of conservative treatment we discussed the surgical and nonsu rgical treatment options at length. Patient wishes to proceed with a total hip arthroplasty with a direct anterior approach. Complications specific to this procedure were discussed at length, including but not limited to infection, leg length discrepancy, dislocation, nerve injury, and fracture. Covid-19 was also discussed at length with the patient, and they are aware of the current policies and procedures. The patient was given the option of delaying surgery, but they elect to proceed knowing these risks. Patient is aware of all these complications and informed consent was obtained Operative Findings: The operative findings are consistent with severe osteoarthritis of the right hip Description of Procedure: Patient was seen and evaluated in the preoperative area and the consent was reviewed. The operative site was marked with a skin marker. The patient was then brought to the operating room and given preoperative antibiotics intravenously. 1 g of Tranexamic acid was also given intravenously. A general anesthetic was administered by the anesthesia department. The patient was then placed on the [place] table with the bony prominences well-padded. The hip area was then prepped with a ChloraPrep solution and draped in the usual sterile fashion. A universal timeout was then performed, which confirmed the patient's name, surgical site, ALLERGIES, and procedure being performed on the consent. Next the incision site was located at 1 cm distal and 2 cm lateral to the anterior superior iliac spine. The skin and subcutaneous tissues were sharply incised. Incision was carefully dissected down to the fascia overlying the tensor fascia linette muscle. This fascia was then incised in line with the incision. Care was taken to stay laterally in order to avoid injuring the lateral femoral cutaneous nerve. Next, using blunt finger dissection, the tensor fascia linette muscle was dissected off its investing fascia. The muscle was then carefully retracted laterally with a cobra retractor over the lateral neck of the femur. Next, the circumflex vessels were identified and cauterized using the AquaMantis device. The anterior hip capsule was then exposed. The capsule was then opened and an inverted T fashion. Cobra retractors were then placed intracapsularly. The retractors were maintained intracapsular throughout the procedure. The proximal femur was then visualized. Fluoroscopic x-rays were then taken in order to evaluate the preoperative leg lengths. A small amount of traction was placed on the leg. The femoral neck was then osteotomized at the appropriate level above the lesser trochanter. A small wedge of bone was then removed from the remaining femoral head. Next, using a corkscrew the femoral head was removed from the acetabulum. On gross visual inspection, the femoral head had complete loss of articular cartilage and multiple periarticular osteophytes. The femoral head was then m easured. Attention was then turned to the acetabulum. The acetabulum was exposed and any remaining labrum was excised. Sequential reaming of the acetabulum was performed using fluoroscopic guidance until there was a good bed of bleeding cancellus bone. When the appropriate size was reached, a trial was then placed. The position and fit of the trial was checked with fluoroscopy. The trial was then removed. Then, using fluoroscopic guidance, the final implant was impacted at 20 of anteversion and 40 of abduction, and fully seated in the acetabulum. 2 screws were then placed in the acetabulum. Again fluoroscopy was used to check position of the screws. Next, the liner was then impacted, with a 20 elevated liner located in the anterior superior quadrant. Component locking was confirmed. Attention was then directed to the femur. With the aid of the [place] table, the femur was externally rotated to approximately 130, extended, and adducted under the opposite leg. A side hook was then placed under the proximal femur, and the side hook elevator was used to elevate the proximal femur while releasing the capsule. Retractors were then placed. A capsular release was performed, as well as a release of the conjoined tendon, which afforded excellent visualization of the proximal femur. Next, a box osteotome was used to lateralize the proximal femur. A machine hand was then used to locate the femoral canal. Sequential broaching was then performed with appropriate size which afforded excellent fixation in the proximal femur. A trial was then placed with appropriate head and neck, and the hip was gently reduced with the aid of the [place] table. Fluoroscopy was then used to check position of the components, as well as to ensure equal leg lengths. The hip was then gently dislocated and the trials were then removed. Final implants were then impacted and the hip was again reduced. Final fluoroscopic x-rays confirmed that the components were in anatomic position, as well as equal leg lengths. The hip was also taken through range of motion, and found to be stable. The hip was then copiously irrigated with antibiotic solution with pulsatile lavage. The hip was then irrigated with Irrisept solution. The soft tissues were then injected with a ropivacaine solution. A second dose of 1 g of Tranexamic acid was also given intravenously. The fascia was then closed with 2-0 strata fix suture. The subcutaneous tissue was closed with 3-0 Vicryl. The subcuticular tissue was closed with 3-0 strata fix suture. The skin was then closed with Exofin skin glue. After the glue and dried, and Optifoam silver impregnated dressing was applied. The patient was then transferred to the recovery room in stable condition. The neurology physician assistant CARROLL Vazquez was required due to the complexity of surgery, and the need for skilled editorial assistant for positioning, draping, exposure, retraction, and closure of the wound.
[2022-05-29] MEDS ORDERED: IV FLUID CONTINUATION 1,000 ML IV ONE ×2 (08:32)
--- NOTE | 2022-05-29 08:34 | FL ---
Fluoroscopy HISTORY: Anterior hip replacement 46 seconds fluoroscopy time supplied to the referring clinician. 2 intraoperative C-arm images docum ent the procedure. See dictated report from orthopedic surgery.
[2022-05-29] MEDS: HYDROmorphone 0.5 MG/0.5 ML SYRINGE IVP PRN ×2 (08:42→08:57)
[2022-05-29 08:53] VITALS: TEMP 97
--- NOTE | 2022-05-29 08:59 | XR ---
EXAMINATION TYPE: XR Hip Limited RT DATE OF EXAM: 05/29/2022 COMPARISON: None HISTORY: Post right hip arthroplasty TECHNIQUE: AP right hip FINDINGS: The femoral component with acetabular component has been placed. No acute fractures are madeline dent. Postsurgical changes are within the soft tissues. IMPRESSION: 1. No acute fracture post right hip replacement
[2022-05-29 09:23] LABS: Glucose,Whole Blood 173 mg/dL (70-110)
[2022-05-29] MEDS ORDERED: LACTATED RINGERS 1,000 ML IV ONE (09:29)
[2022-05-29] MEDS ORDERED: oxyCODONE-APAP 7.5-325MG 1 EACH TAB PO ONE (09:40)
[2022-05-29] MEDS ORDERED: oxyCODONE-APAP 7.5-325MG 1 EACH TAB ONE (09:43)
[2022-05-29 10:36] VITALS: BP 128/85; PULSE 78; RESP 18
[2022-05-29] MEDS ORDERED: ceFAZolin 10 GM VIAL IVPB ONE (11:27)
== END 2022-05-29 11:58 | disposition home health service (06) ==
LOC: OR 05:36
PROVIDERS: ATTEND Orthopaedic Surgery
DX: M16.0 Bilateral primary osteoarthritis of hip (principal); I10 Essential (primary) hypertension; E11.9 Type 2 diabetes mellitus without complications; K21.9 Gastro-esophageal reflux disease without esophagitis; F32.0 Major depressive disorder, single episode, mild; G89.29 Other chronic pain; Z79.82 Long term (current) use of aspirin; Z79.899 Other long term (current) drug therapy; Z28.311 Partially vaccinated for COVID-19; Z80.0 Family history of malignant neoplasm of digestive organs; Z83.3 Family history of diabetes mellitus; Z82.49 Family history of ischemic heart disease and other diseases of the circulatory system
CPT/HCPCS: 97110; 97161; 86900; 86901; 86850; 88300; 73501; 27130; C1776; J2250; J0330; J1100; J2710; J0690 ×2; J2405; J3010; J2795; J2704; J1170; J2001

== ENCOUNTER → 2022-07-05 | Outpatient (CLI) | payer MEDICAID ==
[2022-07-05 11:52] LABS: INR 0.9 (<1.2); Prothrombin Time 10.4 sec (9.0-12.0)
[2022-07-05 14:42] LABS: HGB 11.8 g/dL (13.0-17.0); MCH 28.2 pg (27.0-32.0); MCHC 31.1 g/dL (32.0-37.0); MCV 90.9 fL (80.0-97.0); Mean Platelet Volume 10.1 fL (9.5-12.2); NRBC Per 100 WBC 0 /100 WBCS (0.0-0.0); Platelet Count 277 X 10*3/uL (140-440); RBC 4.18 X 10*6/uL (4.40-5.60); RDW 13.6 % (11.5-14.5); WBC 5.88 X 10*3/uL (4.50-10.00)
[2022-07-05 14:49] LABS: African American GFR (CKD) 93.2 (60.0-200.0); Albumin 4.2 g/dL (3.8-4.9); Albumin/Globulin Ratio 1.55 (1.60-3.17); Anion Gap 12.9 mmol/L (10.00-18.00); BUN/Creat Ratio 16.02 Ratio (12.00-20.00); Calcium 9.5 mg/dL (8.7-10.3); Carbon Dioxide 25.3 mmol/L (20.0-27.5); Globulin 2.7 g/dL (1.6-3.3); Non-African American GFR(CKD) 80.4 (60.0-200.0); Potassium 3.7 mmol/L (3.5-5.5); Total Bilirubin 0.5 mg/dL (0.30-1.20); Total Protein 6.9 g/dL (6.2-8.2)
[2022-07-05 19:17] LABS: Appearance,Urine Clear (Clear); Bilirubin,Urine Negative (Negative); Blood,Urine Negative (Negative); Color,Urine Yellow (Yellow); Ketones,Urine Trace mg/dL (Negative); Nitrite,Urine Negative (Negative); PH, Urine 5.5 (5.0-8.0); Specific Gravity,Urine 1.026 (1.001-1.030)
== END | disposition home or self-care (01) ==
LOC: LABPAT 08:36
PROVIDERS: ATTEND Orthopaedic Surgery
DX: Z01.812 Encounter for preprocedural laboratory examination (principal); M16.12 Unilateral primary osteoarthritis, left hip
CPT/HCPCS: 36415; 80053; 81003; 85027; 85610; 85730; 87070

== ENCOUNTER 2022-07-16 05:34 | Day surgery (SDC) | payer MEDICAID ==
[2022-07-12 15:41] VITALS: BMI 28.1
[~2022-07-16 05:34] MED LIST changes: -DEXAMETHASONE SOD PHOSPHATE 4 MG/ML 1 ML VIAL IV ONE; -LACTATED RINGERS 1,000 ML IV SCH; -LIDOCAINE 1% (10MG/ML) FOR IV START INTRADERMA PRN; -MIDAZOLAM 2 MG/2 ML VIAL IV PRN; -ONDANSETRON 4 MG/2 ML VIAL IVP ONE
[2022-07-16] MEDS ORDERED: MIDAZOLAM 2 MG/2 ML VIAL IV PRN (06:03)
[2022-07-16] MEDS ORDERED: LACTATED RINGERS 1,000 ML IV SCH (06:03)
[2022-07-16] MEDS ORDERED: DEXAMETHASONE SOD PHOSPHATE 4 MG/ML 1 ML VIAL IV ONE (06:03)
[2022-07-16] MEDS ORDERED: LIDOCAINE 1% (10MG/ML) FOR IV START INTRADERMA PRN (06:03)
[2022-07-16] MEDS ORDERED: ONDANSETRON 4 MG/2 ML VIAL IVP ONE ×2 (06:03→06:41)
[2022-07-16 06:20] LABS: Glucose,Whole Blood 152 mg/dL (70-110)
[2022-07-16] MEDS ORDERED: DEXAMETHASONE SOD PHOSPHATE 4 MG/ML 1 ML VIAL IVP ONE (06:41)
[2022-07-16] MEDS ORDERED: LIDOCAINE 2% INJ 20 MG/ML (2 ML VIAL) ONE (06:55)
[2022-07-16] MEDS ORDERED: fentaNYL (PF) 50 MCG/ML 2 ML AMP ONE (06:55)
[2022-07-16] MEDS ORDERED: PROPOFOL 10 MG/ML 20 ML VIAL IV ONE (06:55)
[2022-07-16] MEDS ORDERED: TRANEXAMIC ACID IN NACL,ISO-OS 1,000 MG/100 ML BAG ONE (06:55)
[2022-07-16] MEDS ORDERED: GLYCOPYRROLATE 0.2 MG/ML 2 ML VIAL ONE (06:55)
[2022-07-16] MEDS ORDERED: PHENYLEPHRINE-0.9% NACL SYG 1,000 MCG/10 ML SYRINGE ONE (06:55)
[2022-07-16] MEDS ORDERED: SUCCINYLCHOLINE CHLORIDE 200 MG/10 ML VIAL IV ONE (06:55)
[2022-07-16] MEDS ORDERED: ROCURONIUM 10 MG/ML (5 ML VIAL) IV ONE (06:55)
[2022-07-16] MEDS ORDERED: MIDAZOLAM 2 MG/2 ML VIAL ONE (06:55)
[2022-07-16] MEDS ORDERED: HYDROmorphone (PF) 1 MG/ML ONE (06:55)
[2022-07-16] MEDS ORDERED: NEOSTIGMINE 1 MG/ML 10 ML VIAL ONE (06:55)
[2022-07-16] MEDS ORDERED: ceFAZolin 1,000 MG in SODIUM CHLORIDE 0.9% 1,000 ML IRRIGATION ONE (07:00)
[2022-07-16] MEDS ORDERED: ROPIVACAINE 5 MG/ML 30 ML VIAL MISCELLANE ONE ×2 (07:25→08:02)
--- NOTE | 2022-07-16 08:06 | P.OP ---
Date of Procedure: 07/16/22 Preoperative Diagnosis: Severe osteoarthritis left hip Postoperative Diagnosis: Severe osteoarthritis left hip Procedure(s) Performed: Left total hip arthroplasty for direct anterior approach Implants: [employer] Polarstem standard size 4 collar [employer] R3, 3 hole hemispherical acetabular shell, 52 mm [employer] Reflection 6.5 mm cancellus screw, 20 mm, 25 mm [employer] R3, XLPE 20 acetabular liner [employer] Oxinium femoral head 36 m, +8 All components were press-fit. The articulation is Oxinium on polyethylene. Anesthesia: GETA Surgeon: Patricio Mendoza Cardiothoracic Physiotherapist #1: Tanya Montes Estimated Blood Loss (ml): 300 Pathology: other (Femoral head) Condition: stable Disposition: PACU Indications for Procedure: After failure of conservative treatment we discussed the surgical and nonsur gical treatment options at length. Patient wishes to proceed with a total hip arthroplasty with a direct anterior approach. Complications specific to this procedure were discussed at length, including but not limited to infection, leg length discrepancy, dislocation, nerve injury, and fracture. Covid-19 was also discussed at length with the patient, and they are aware of the current policies and procedures. The patient was given the option of delaying surgery, but they elect to proceed knowing these risks. Patient is aware of all these complications and informed consent was obtained Operative Findings: The operative findings are consistent with severe osteoarthritis of the left hip Description of Procedure: Patient was seen and evaluated in the preoperative area and the consent was reviewed. The operative site was marked with a skin marker. The patient was then brought to the operating room and given preoperative antibiotics intravenously. 1 g of Tranexamic acid was also given intravenously. A general anesthetic was administered by the anesthesia department. The patient was then placed on the [place] table with the bony prominences well-padded. The hip area was then prepped with a ChloraPrep solution and draped in the usual sterile fashion. A universal timeout was then performed, which confirmed the patient's name, surgical site, ALLERGIES, and procedure being performed on the consent. Next the incision site was located at 1 cm distal and 2 cm lateral to the anterior superior iliac spine. The skin and subcutaneous tissues were sharply incised. Incision was carefully dissected down to the fascia overlying the tensor fascia linette muscle. This fascia was then incised in line with the incision. Care was taken to stay laterally in order to avoid injuring the lateral femoral cutaneous nerve. Next, using blunt finger dissection, the tensor fascia linette muscle was dissected off its investing fascia. The muscle was then carefully retracted laterally with a cobra retractor over the lateral neck of the femur. Next, the circumflex vessels were identified and cauterized using the AquaMantis device. The anterior hip capsule was then exposed. The capsule was then opened and an inverted T fashion. Cobra retractors were then placed intracapsularly. The retractors were maintained intracapsular throughout the procedure. The proximal femur was then visualized. Fluoroscopic x-rays were then taken in order to evaluate the preoperative leg lengths. A small amount of traction was placed on the leg. The femoral neck was then osteotomized at the appropriate level above the lesser trochanter. A small wedge of bone was then removed from the remaining femoral head. Next, using a corkscrew the femoral head was removed from the acetabulum. On gross visual inspection, the femoral head had complete loss of articular cartilage and multiple periarticular osteophytes. The femoral head was then jewel sured. Attention was then turned to the acetabulum. The acetabulum was exposed and any remaining labrum was excised. Sequential reaming of the acetabulum was performed using fluoroscopic guidance until there was a good bed of bleeding cancellus bone. When the appropriate size was reached, a trial was then placed. The position and fit of the trial was checked with fluoroscopy. The trial was then removed. Then, using fluoroscopic guidance, the final implant was impacted at 20 of anteversion and 40 of abduction, and fully seated in the acetabulum. 2 screws were then placed in the acetabulum. Again fluoroscopy was used to check position of the screws. Next, the liner was then impacted, with a 20 elevated liner located in the anterior superior quadrant. Component locking was confirmed. Attention was then directed to the femur. With the aid of the [place] table, the femur was externally rotated to approximately 130, extended, and adducted under the opposite leg. A side hook was then placed under the proximal femur, and the side hook elevator was used to elevate the proximal femur while releasing the capsule. Retractors were then placed. A capsular release was performed, as well as a release of the conjoined tendon, which afforded excellent visualization of the proximal femur. Next, a box osteotome was used to lateralize the proximal femur. A ash handler was then used to locate the femoral canal. Sequential broaching was then performed with appropriate size which afforded excellent fixation in the proximal femur. A trial was then placed with appropriate head and neck, and the hip was gently reduced with the aid of the [place] table. Fluoroscopy was then used to check position of the components, as well as to ensure equal leg lengths. The hip was then gently dislocated and the trials were then removed. Final implants were then impacted and the hip was again reduced. Final fluoroscopic x-rays confirmed that the components were in anatomic position, as well as equal leg lengths. The hip was also taken through range of motion, and found to be stable. The hip was then copiously irrigated with antibiotic solution with pulsatile lavage. The hip was then irrigated with Irrisept solution. The soft tissues were then injected with a ropivacaine solution. A second dose of 1 g of Tranexamic acid was also given intravenously. The fascia was then closed with 2-0 strata fix suture. The subcutaneous tissue was closed with 3-0 Vicryl. The subcuticular tissue was closed with 3-0 strata fix suture. The skin was then closed with Exofin skin glue. After the glue and dried, and Optifoam silver impregnated dressing was applied. The patient was then transferred to the recovery room in stable condition. The assistant director of nursing CARROLL Canales was required due to the complexity of surgery, and the need for skilled neurosurgical nurse practitioner for positioning, draping, exposure, retraction, and closure of the wound.
[2022-07-16] MEDS ORDERED: LACTATED RINGERS 1,000 ML IV ONE ×2 (08:09→11:15)
--- NOTE | 2022-07-16 08:22 | XR ---
EXAMINATION TYPE: XR Hip Limited LT, FL guidance operating room DATE OF EXAM: 07/16/2022 Comparison: None Clinical History: 61-year-old male TOTAL ANTERIOR LT HIP Findings: Intraoperative fluoroscopy during placement of left hip total arthroplasty due to severe osteoporosis . Previous right hip total arthroplasty is noted. FLUOROSCOPY Fluoroscopy time of 26 seconds was used during left hip total arthroplasty. 3 image/s document/s the procedure. Impression: Intraoperative fluoroscopy as above.
[2022-07-16] MEDS: HYDROmorphone 0.5 MG/0.5 ML SYRINGE IVP PRN ×3 (08:36→09:00)
[2022-07-16 08:39] VITALS: TEMP 97
[2022-07-16] MEDS ORDERED: HYDROmorphone 0.5 MG/0.5 ML SYRINGE IVP PRN ×2 (08:51)
[2022-07-16] MEDS ORDERED: NALOXONE 0.4 MG/ML 1 ML VIAL IV PRN (08:51)
[2022-07-16] MEDS ORDERED: HYDROmorphone 1 MG/ML 1 ML SYRINGE IVP PRN (08:51)
[2022-07-16] MEDS ORDERED: ONDANSETRON 4 MG/2 ML VIAL IVP PRN (08:51)
[2022-07-16] MEDS ORDERED: HYDROcodone/APAP 7.5-325MG 1 EACH TAB PO PRN ×2 (08:53)
[2022-07-16] MEDS ORDERED: SODIUM CHLORIDE 0.9% 1,000 ML IV SCH (09:00)
--- NOTE | 2022-07-16 09:01 | XR ---
EXAMINATION TYPE: XR Hip Limited LT DATE OF EXAM: 07/16/2022 Comparison: None Clinical History: 61-year-old male post-op evaluation. Findings: Image shows placement of left hip arthroplasty. Both acetabular cup and femoral stem components of th e prosthesis are well seated without prosthetic fracture. Alignment grossly anatomic. Scattered soft tissue air related to recent operation. Impression: Uncomplicated postoperative appearance left total hip arthroplasty.
[2022-07-16 09:39] LABS: Glucose,Whole Blood 220 mg/dL (70-110)
[2022-07-16] MEDS ORDERED: HYDROcodone/APAP 7.5-325MG 1 EACH TAB PO ONE (09:58)
[2022-07-16] MEDS ORDERED: INSULIN ASPART (NovoLOG) 100 UNIT/ML VIAL SQ ONE (10:15)
[2022-07-16 11:34] VITALS: RESP 16
[2022-07-16 12:00] VITALS: BP 113/77; PULSE 85
== END 2022-07-16 12:20 | disposition home health service (06) ==
LOC: OR 05:34
PROVIDERS: ATTEND Orthopaedic Surgery
DX: M16.12 Unilateral primary osteoarthritis, left hip (principal); I10 Essential (primary) hypertension; E11.9 Type 2 diabetes mellitus without complications; R26.81 Unsteadiness on feet; Z79.899 Other long term (current) drug therapy; K21.9 Gastro-esophageal reflux disease without esophagitis
CPT/HCPCS: 27130; 97110; 97161; 86900; 86901; 86850; 88300; 73501; C1776; J2250; J0330; J1100; J2710; J0690 ×2; J2405; J3010; J1170 ×2; J2795; J2370; J2704; J2001

== ENCOUNTER → 2023-06-07 | Outpatient (CLI) | payer OTHER ==
[2023-06-07 13:07] LABS: Basophils # (A) 0.04 X 10*3/uL (0.00-0.10); Basophils % (A) 0.6 %; Eosinophils # (A) 0.12 X 10*3/uL (0.04-0.35); Eosinophils % (A) 1.7 %; HCT 45.2 % (39.6-50.0); HGB 13.8 d/dL (13.0-17.0); Lymphocytes # (A) 1.77 X 10*3/uL (0.90-5.00); Lymphocytes % (A) 25.7 %; MCH 26.6 pg (27.0-32.0); MCHC 30.5 d/dL (32.0-37.0); MCV 87.1 FL (80.0-97.0); Mean Platelet Volume 11.1 FL (9.5-12.2); Monocytes # (A) 0.61 X 10*3/uL (0.20-1.00); Monocytes % (A) 8.9 %; NRBC Per 100 WBC 0 X 10*3/uL (0.00-0.01); Neutrophils % (A) 62.5 %; Platelet Count 238 X 10*3/uL (140-440); RBC 5.19 X 10*6/uL (4.40-5.60); RDW 17.5 % (11.5-14.5); WBC 6.88 X 10*3/uL (4.50-10.00)
[2023-06-07 13:37] LABS: ALT 31 U/L (10-49); AST 26 U/L (14-35); Albumin 4.4 d/dL (3.8-4.9); Albumin/Globulin Ratio 1.91 Ratio (1.60-3.17); Alkaline Phosphatase 73 U/L (41-126); Blood Urea Nitrogen 15.4 mg/dL (9.0-27.0); Calcium 9.6 mg/dL (8.7-10.3); Carbon Dioxide 24.8 mmol/L (21.6-31.8); Chloride 102 mmol/L (96-109); Chol/HDL Ratio 5.09 Ratio; Globulin 2.3 d/dL (1.6-3.3); Glucose 169 mg/dL (70-110); LDL Cholesterol,Calculated 107.4 mg/dL (0.0-131.0); Potassium 4.2 mmol/L (3.5-5.5); Sodium 138 mmol/L (135-145); Total Bilirubin 0.4 mg/dL (0.3-1.2); Total Protein 6.7 d/dL (6.2-8.2)
== END | disposition home or self-care (01) ==
LOC: LABWHC1 08:05
PROVIDERS: ATTEND Family Medicine
DX: Z00.00 Encounter for general adult medical examination without abnormal findings (principal); E66.9 Obesity, unspecified; I10 Essential (primary) hypertension; E11.9 Type 2 diabetes mellitus without complications; Z68.30 Body mass index [BMI] 30.0-30.9, adult
CPT/HCPCS: 36415; 80053; 80061; 84153; 85025

== ENCOUNTER → 2023-11-22 | Outpatient (CLI) | payer OTHER ==
[2023-11-22 11:15] LABS: Basophils # (A) 0.02 X 10*3/uL (0.00-0.10); Basophils % (A) 0.3 %; Eosinophils # (A) 0.11 X 10*3/uL (0.04-0.35); Eosinophils % (A) 1.8 %; HCT 42.3 % (39.6-50.0); HGB 13.8 g/dL (13.0-17.0); Lymphocytes # (A) 1.83 X 10*3/uL (0.90-5.00); Lymphocytes % (A) 29.5 %; MCH 30.2 pg (27.0-32.0); MCHC 32.6 g/dL (32.0-37.0); MCV 92.6 FL (80.0-97.0); Mean Platelet Volume 10.3 FL (9.5-12.2); Monocytes # (A) 0.55 X 10*3/uL (0.20-1.00); Monocytes % (A) 8.9 %; NRBC Per 100 WBC 0 X 10*3/uL (0.00-0.01); Neutrophils # (A) 3.66 X 10*3/uL (1.80-7.70); Platelet Count 227 X 10*3/uL (140-440); RBC 4.57 X 10*6/uL (4.40-5.60); RDW 13.1 % (11.5-14.5)
== END | disposition home or self-care (01) ==
LOC: LABPAT 07:18
PROVIDERS: ATTEND Surgery
DX: Z01.818 Encounter for other preprocedural examination (principal); K40.90 Unilateral inguinal hernia, without obstruction or gangrene, not specified as recurrent; R00.1 Bradycardia, unspecified
CPT/HCPCS: 85025; 86850; 86900; 86901; 93005

== ENCOUNTER 2023-11-29 09:25 | Day surgery (SDC) | payer OTHER ==
[2023-11-25 12:00] VITALS: BMI 28.1
--- NOTE | 2023-11-29 07:31 | P.GSHP ---
History of Present Illness H&P Date: 11/29/23 Chief Complaint: Right inguinal hernia 63-year-old male here for repair of right inguinal hernia. Increasing in size over the last 6 months. Mild soreness. No symptoms on the left. Past Medical History Past Medical History: Diabetes Mellitus, GERD/Reflux, Hypertension, Musculoskeletal Disorder, Osteoarthritis (OA), Prostate Disorder Additional Past Medical History / Comment(s): Diet Controlled Diabetes, Spinal Stenosis, back and knee pain, slightly enlarged prostate. History of Any Multi-Drug Resistant Organisms: None Reported Past Surgical History: Back Surgery, Joint Replacement, Orthopedic Surgery Additional Past Surgical History / Comment(s): Bilatetal total hip replacements, back surgery - laminectomy, right eye surgery for fractured orbital bones, left shoulder surgery, colonoscopy. Past Anesthesia/Blood Transfusion Reactions: No Reported Reaction Past Psychological History: Anxiety, Depression Additional Psychological History / Comment(s): Past hx anxiety and depression 15 yrs ago, none now. Smoking Status: Never smoker Past Alcohol Use History: Occasional Past Drug Use History: None Reported - Past Family History Mother Family Medical History: Cancer Additional Family Medical History / Comment(s): Colon cancer. Medications and Allergies Home Medications Medication Instructions Recorded Confirmed Type Bisoprolol/Hydrochlorothiazide 1 tab PO QAM 11/29/14 11/25/23 History [Ziac 5-6.25 MG] Omeprazole [PriLOSEC] 20 mg PO QAM 11/29/14 11/25/23 History lisinopriL [Zestril] 5 mg PO HS 11/26/19 11/25/23 History Cyanocobalamin (Vitamin B-12) 5,000 mcg PO DAILY 06/15/21 11/25/23 History [Vitamin B12] Magnesium 250 mg PO DAILY 05/24/22 11/25/23 History hydroCHLOROthiazide [Hydrodiuril] 25 mg PO DAILY 05/24/22 11/25/23 History Vitamin C (Unknown Dose) 1 tab PO DAILY 11/25/23 11/25/23 History Allergies Allergy/AdvReac Type Severity Reaction Status Date / Time No Known Allergies Allergy Verified 11/25/23 11:26 Surgical - Exam Physical exam: General: Well-developed, well-nourished HEENT: Normocephalic, sclerae nonicteric Abdomen: Nontender, nondistended, reducible moderate size right inguinal hernia, possible very small left inguinal hernia Extremities: No edema Neuro: Alert and oriented Assessment and Plan (1) Right inguinal hernia Narrative/Plan: 63-year-old male with right inguinal hernia. Patient may have a very small hernia on the left-hand side as well. Will proceed with laparoscopic da Ej assisted repair right inguinal hernia with mesh, possible open, possible bilateral. Risks of bleeding, infection, recurrence, bladder and bowel injury, numbness, nerve injury, conversion to an open procedure were discussed with the patient. The patient understands and wishes to proceed. Status: Acute Code(s): K40.90 - UNIL INGUINAL HERNIA, W/O OBST OR GANGR, NOT SPCF RECUR SNOMED Code(s): 616626673
[~2023-11-29 09:25] MED LIST changes: +DEXAMETHASONE SOD PHOSPHATE 4 MG/ML 1 ML VIAL IV ONE; -GABAPENTIN 300 MG CAP PO PRN; +HEPARIN SODIUM,PORCINE 5,000 UNIT/ML 1 ML VIAL SQ PRN; +HYDROmorphone 0.5 MG/0.5 ML SYRINGE IVP PRN; +LACTATED RINGERS 1,000 ML IV SCH; +LIDOCAINE 1% (10MG/ML) FOR IV START INTRADERMA PRN; -MELOXICAM 7.5 MG TAB PO PRN; +MIDAZOLAM 2 MG/2 ML VIAL IV PRN; +ONDANSETRON 4 MG/2 ML VIAL IVP ONE; -TRANEXAMIC ACID IN NACL,ISO-OS 1,000 MG in SALINE 1 100ML.BAG IVPB PRN
[2023-11-29] MEDS ORDERED: LACTATED RINGERS 1,000 ML IV ONE (09:45)
[2023-11-29 10:12] LABS: Glucose,Whole Blood 197 mg/dL (70-110)
[2023-11-29] MEDS ORDERED: TAMSULOSIN 0.4 MG CAP.ER.24H PO ONE (11:02)
[2023-11-29] MEDS ORDERED: GLYCOPYRROLATE 0.2 MG/ML 2 ML VIAL ONE (11:32)
[2023-11-29] MEDS ORDERED: NEOSTIGMINE 1 MG/ML 10 ML VIAL ONE (11:32)
[2023-11-29] MEDS ORDERED: SUCCINYLCHOLINE CHLORIDE 200 MG/10 ML VIAL IV ONE (11:32)
[2023-11-29] MEDS ORDERED: PROPOFOL 10 MG/ML 20 ML VIAL IV ONE (11:32)
[2023-11-29] MEDS ORDERED: MIDAZOLAM 2 MG/2 ML VIAL ONE (11:32)
[2023-11-29] MEDS ORDERED: LIDOCAINE 1% INJ 10MG/ML (20 ML MDV) ONE (11:32)
[2023-11-29] MEDS ORDERED: ROCURONIUM 10 MG/ML (5 ML VIAL) IV ONE (11:32)
[2023-11-29] MEDS ORDERED: fentaNYL (PF) 50 MCG/ML 2 ML AMP ONE (11:32)
[2023-11-29] MEDS ORDERED: BUPIVACAINE (PF) 0.25% 30 ML VIAL SQ ONE (12:03)
--- NOTE | 2023-11-29 13:22 | P.OP ---
Date of Procedure: 11/29/23 Procedure(s) Performed: PREOPERATIVE DIAGNOSIS: Right inguinal hernia POSTOPERATIVE DIAGNOSIS: Large right indirect inguinal hernia PROCEDURE: Laparoscopic repair da Ej assisted large right indirect inguinal hernia SURGEON: Dr. Saavedra ANESTHESIA: General OPERATIVE PROCEDURE DETAILS: Patient was placed in the operating table in the supine position. The patient was placed under general anesthesia. The abdomen was prepped and draped in usual sterile fashion. A small curvilinear supraumbilical incision was made. The fascia was retracted anteriorly with Kory forceps. The Veress needle was inserted. The saline drop test was normal. Insufflation took place to 15 mmHg. An 8 mm trocar was placed into the peritoneal cavity. 2 additional 8 mm trochars were placed in the right upper quadrant and left upper quadrant under visualization. The robotic arms were then brought in and docked into place. The fenestrated bipolar was used in the left arm and the laparoscopic sourav was utilized in the right arm. A 30 8 mm scope was used in the up position. The peritoneal cavity was inspected. P cristiane had a large indirect hernia on the right-hand side. No visible hernia on the left was noted. The peritoneum was incised in a horizontal fashion cephalad to the internal inguinal ring. Following that careful dissection of the preperitoneal space took place. This took place using both electrocautery, sharp dissection but primarily blunt dissection. Visualization of the pubic tubercle and Karan's ligament took place medially. Full dissection took place laterally as well. The hernia sac was fully dissected. Once we had adequate space the [id number] Progrip mesh was advanced into the preperitoneal space and flattened out appropriately to cover all potential hernia sites. A running absorbable 3 OV lock suture was used to secure the mesh medially to Karan's ligament in the midline. The peritoneal defect was then closed using a absorbable 2-0 VLok suture. The hernia sac was incorporated into the peritoneal closure to help prevent future recurrence. The pneumoperitoneum was then evacuated. The skin of all 3 sites was closed using a 4-0 Monocryl stitch. Skin glue was then applied. TYPE OF MESH USED: ProGrip LOCATION OF MESH: Preperitoneal FIXATION: 3 OV lock PREOPERATIVE DISCUSSION ON SMOKING CESSASTION: Yes PREOPERATIVE DISCUSSION ON MORBID OBESITY: Yes PREOPERATIVE DISCUSSION ON APPROPRIATE USE OF NARCOTIC USE: Yes PREOPERATIVE EDUCATION: Multi Modal, Smoking Cessation and Weight Loss with BMI over 35. DISPOSITION: Stable to recovery room
[2023-11-29] MEDS ORDERED: ACETAMINOPHEN TAB 325 MG TAB PO SCH (13:30)
[2023-11-29 13:40] VITALS: TEMP 97
[2023-11-29 13:45] LABS: Glucose,Whole Blood 238 mg/dL (70-110)
[2023-11-29] MEDS ORDERED: KETOROLAC 15 MG/ML 1 ML VIAL IVP ONE (13:55)
[2023-11-29] MEDS ORDERED: HYDROmorphone 0.5 MG/0.5 ML SYRINGE IVP ONE (13:58)
[2023-11-29 15:07] VITALS: BP 105/80; PULSE 71; RESP 17
[2023-11-29] MEDS ORDERED: IBUPROFEN 600 MG TAB PO SCH (16:30)
== END 2023-11-29 15:24 | disposition home or self-care (01) ==
LOC: OR 09:25
PROVIDERS: ATTEND Surgery
DX: K40.90 Unilateral inguinal hernia, without obstruction or gangrene, not specified as recurrent (principal); I10 Essential (primary) hypertension; K21.9 Gastro-esophageal reflux disease without esophagitis; E11.9 Type 2 diabetes mellitus without complications; M79.9 Soft tissue disorder, unspecified; M19.90 Unspecified osteoarthritis, unspecified site; N42.9 Disorder of prostate, unspecified; M48.00 Spinal stenosis, site unspecified; N40.0 Benign prostatic hyperplasia without lower urinary tract symptoms; F41.9 Anxiety disorder, unspecified; F32.A Depression, unspecified; F10.90 Alcohol use, unspecified, uncomplicated; Z80.0 Family history of malignant neoplasm of digestive organs; Z79.899 Other long term (current) drug therapy; Z79.84 Long term (current) use of oral hypoglycemic drugs
CPT/HCPCS: 49650; S2900

== ENCOUNTER → 2024-10-27 | Outpatient (CLI) | payer OTHER ==
[2024-10-27 10:23] LABS: Microalbumin Creatinine Ratio <14 mg/g Cr (0-30); Urine Creatinine 88.3 mg/dL (39.0-259.0)
[2024-10-27 15:14] LABS: ALT 23 U/L (10-49); AST 20 U/L (14-35); Albumin 4.5 g/dL (3.8-4.9); Albumin/Globulin Ratio 1.67 Ratio (1.60-3.17); Alkaline Phosphatase 75 U/L (41-126); BUN/Creat Ratio 19.22 Ratio (12.00-20.00); Blood Urea Nitrogen 17.3 mg/dL (9.0-27.0); Calcium 9.7 mg/dL (8.7-10.3); Carbon Dioxide 28.5 mmol/L (21.6-31.8); Chloride 98 mmol/L (96-109); Chol/HDL Ratio 4.59 Ratio; Globulin 2.7 g/dL (1.6-3.3); Glucose 156 mg/dL (70-110); LDL Cholesterol,Calculated 132.2 mg/dL (0.0-131.0); Potassium 4.1 mmol/L (3.5-5.5); Sodium 137 mmol/L (135-145); Total Bilirubin 0.8 mg/dL (0.3-1.2); Total Protein 7.2 g/dL (6.2-8.2)
[2024-10-27 15:35] LABS: Basophils # (A) 0.04 X 10*3/uL (0.00-0.10); Basophils % (A) 0.5 %; Eosinophils # (A) 0.13 X 10*3/uL (0.04-0.35); Eosinophils % (A) 1.6 %; HCT 50.6 % (39.6-50.0); HGB 15.6 g/dL (13.0-17.0); Lymphocytes # (A) 1.85 X 10*3/uL (0.90-5.00); Lymphocytes % (A) 23.2 %; MCH 26.8 pg (27.0-32.0); MCHC 30.8 g/dL (32.0-37.0); MCV 86.9 FL (80.0-97.0); Mean Platelet Volume 10.9 FL (9.5-12.2); Monocytes # (A) 0.69 X 10*3/uL (0.20-1.00); Monocytes % (A) 8.6 %; NRBC Per 100 WBC 0 X 10*3/uL (0.00-0.01); Neutrophils # (A) 5.25 X 10*3/uL (1.80-7.70); Neutrophils % (A) 65.7 %; Platelet Count 228 X 10*3/uL (140-440); RBC 5.82 X 10*6/uL (4.40-5.60); RDW 15.3 % (11.5-14.5); WBC 7.99 X 10*3/uL (4.50-10.00)
== END | disposition home or self-care (01) ==
LOC: LABWHC1 08:01
PROVIDERS: ATTEND Family Medicine
DX: Z13.220 Encounter for screening for lipoid disorders (principal); I10 Essential (primary) hypertension; E11.59 Type 2 diabetes mellitus with other circulatory complications
CPT/HCPCS: 36415; 80053; 80061; 82043; 82570; 85025